=== PATIENT | female | born 1965 | race Caucasian/White ===

== ENCOUNTER → 2023-11-22 08:18 | Outpatient (REF) | payer MEDICARE, SELFPAY | LOC: RAD 08:18 | PROVIDERS: ATTENDING PHYSICIAN Physician Assistant | DX: M48.02 Spinal stenosis, cervical region (principal); M54.12 Radiculopathy, cervical region; M43.22 Fusion of spine, cervical region | CPT/HCPCS: 72050; 72070; 72141 ==

== ENCOUNTER → 2025-02-01 09:38 | Outpatient (REF) | payer MEDICARE, SELFPAY | LOC: PAVMRI 09:38 | DX: M51.26 Other intervertebral disc displacement, lumbar region (principal) | CPT/HCPCS: 72148 ==